=== PATIENT | female | born 1990 | race Caucasian/White ===

== ENCOUNTER → 2017-06-30 | Outpatient (REF) ==
[~2017-06-30] MED LIST: ALLEGRA-D 24HOU1 T24 PO; COLACE 100100 MG/CAP PO; IBU600 MG PO; NORCO 325 MG-51 TAB PO; PERCOCET 325 MG1 TA2 PO; PRENATAL PO; PROAIR HFA0.09 MG/AC IH; PROTONIX 40MG T40 MG PO; RT ADVAIR 128 DISKUS IH; birth control PO
== END ==
LOC: WSOH 17:15
DX: Z02.89 Encounter for other administrative examinations (principal)

== ENCOUNTER → 2017-10-06 | Outpatient (CLI) | payer OTHER, BC | LOC: COL.RAD 10:08 | DX: N83.8 Other noninflammatory disorders of ovary, fallopian tube and broad ligament (principal); N97.9 Female infertility, unspecified ==

== ENCOUNTER → 2017-10-23 | Outpatient (CLI) | payer OTHER, BC | LOC: COL.LAB 18:13 | DX: Z32.00 Encounter for pregnancy test, result unknown (principal) ==